=== PATIENT | female | born 1955 | race Caucasian/White ===

== ENCOUNTER 2024-10-27 00:26 | Observation (INO) | payer MEDICARE, OTHER ==
[2024-10-27 01:22] LABS: #Basophils 0.05 10x3/uL (0.0-0.2); %Basophils 0.6 % (0.0-1.0); %Lymphocytes 22.7 % (21.0-51.0); %Monocytes 9.7 % (0.0-10.0); %Neutrophils 65.9 % (42.0-75.0); Hematocrit 39.4 % (36.0-47.0); Hemoglobin 13.5 g/dL (12.0-16.0); Mean Corpuscular HGB CONC 34.3 g/dL (32.0-36.0); Mean Corpuscular Hemoglobin 29.2 pg (27.0-31.0); Mean Corpuscular Volume 85.3 fL (78.0-98.0); Mean Platelet Volume 9.7 fL (7.4-10.4); Platelet Count 197 10x3/uL (130-400); RBC Distribution Width 12.5 % (11.5-14.5); Red Blood Cell (RBC) Count 4.62 mill/uL (4.20-5.40)
[2024-10-27 01:32] LABS: INR-International Normal Ratio 1.1; PTT 25.1 sec (22.9-36.1); Prothrombin Time 13.7 sec (12.0-14.7)
[2024-10-27 01:41] LABS: ALT (SGPT) 23 U/L (8-55); AST (SGOT) 21 U/L (5-34); Albumin 4.1 g/dL (3.4-4.8); Alkaline Phosphatase 75 U/L (40-110); Anion Gap 15 mmol/L (10-20); BUN (Urea Nitrogen) 29 mg/dL (9.8-20.1); Bilirubin, Total 1.2 mg/dL (0.2-1.2); Calc. Creatinine Clearance 0 mL/min (70-130); Calcium 9.5 mg/dL (7.8-10.44); Carbon Dioxide 25 mmol/L (23-31); Chloride 106 mmol/L (98-107); Estimated GFR 71; Globulin 2.6 g/dL (2.4-3.5); Glucose 122 mg/dL (80-115); Lipase 70 U/L (8-78); Potassium 4.2 mmol/L (3.5-5.1); Protein, Total 6.7 g/dL (5.8-8.1); Sodium 142 mmol/L (136-145)
[2024-10-27] MEDS ORDERED: Ondansetron PF 4 MG/2 ML Vial IVP PRN (03:30)
[2024-10-27] MEDS ORDERED: Ondansetron ODT 4 MG TAB SL PRN (03:30)
[2024-10-27] MEDS ORDERED: Acetaminophen 325 MG TAB PO PRN (04:27)
[2024-10-27 05:04] VITALS: BMI 26.3
[2024-10-27] MEDS: GoLYTELY 4,000 ml Bottle PO SCH (06:21)
[2024-10-27] MEDS ORDERED: Lidocaine 2% PF 5 ML VIAL ONE (09:17)
[2024-10-27] MEDS ORDERED: PROPOFOL 40 ML ONE (09:17)
[2024-10-27 11:22] LABS: Hematocrit 33.3 % (36.0-47.0); Hemoglobin 11.2 g/dL (12.0-16.0)
[2024-10-27 14:52] VITALS: BP 121/67; TEMP 98.3
== END 2024-10-27 14:53 | disposition home or self-care (01) ==
LOC: ERS 00:26 → SURG A 03:13
PROVIDERS: ADMIT Internal Medicine; ATTEND Family Medicine
PROC: 0DJD8ZZ Inspection of Lower Intestinal Tract, Via Natural or Artificial Opening Endoscopic (ICD-10-PCS; principal; 2024-10-27)
DX: K91.840 Postprocedural hemorrhage of a digestive system organ or structure following a digestive system procedure (principal); K57.30 Diverticulosis of large intestine without perforation or abscess without bleeding; E78.5 Hyperlipidemia, unspecified; E03.9 Hypothyroidism, unspecified; D62 Acute posthemorrhagic anemia; I10 Essential (primary) hypertension; I34.1 Nonrheumatic mitral (valve) prolapse; Z90.89 Acquired absence of other organs; Z90.49 Acquired absence of other specified parts of digestive tract; Z88.5 Allergy status to narcotic agent; Z88.2 Allergy status to sulfonamides; Z79.890 Hormone replacement therapy; Z79.899 Other long term (current) drug therapy
CPT/HCPCS: 45378; 80053; 83690; 85014; 85018; 85025; 85610; 85730; 86850; 86900; 86901; 99284; C1889; G0378 ×2; J2704; 36415; 82274